=== PATIENT | male | born 1965 | race Caucasian/White ===

== ENCOUNTER 2021-01-13 14:21 | Emergency (ER) | payer OTHER ==
[~2021-01-13 14:21] MED LIST: ASPIRIN EC81 MG PO; ATORVASTATIN CA20 MG PO; BRILINTA 90 MG90 MG PO; FOLIC ACID 1 MG1 MG PO; LISINOPRIL40 MG PO; LOPRESSOR 25 MG25 MG PO; NITROGLYCERIN0.4 MG SL; VITAMIN B-1100 M1 PO
[2021-01-13 15:16] LABS: HEMOGLOBIN 14.1 gm/dl (14.0-17.5); RED BLOOD COUNT 4.46 M/UL (4.20-5.50); WHITE BLOOD COUNT 8.6 K/UL (4.5-11.0)
[2021-01-13 15:30] LABS: BUN/CREATININE RATIO 15 (0-10)
== END 2021-01-13 17:06 | disposition home or self-care (01) ==
LOC: ER1 14:21
PROVIDERS: Nurse Practitioner
DX: R04.0 Epistaxis (principal); E78.5 Hyperlipidemia, unspecified; I10 Essential (primary) hypertension; I25.10 Atherosclerotic heart disease of native coronary artery without angina pectoris; Z79.01 Long term (current) use of anticoagulants; Z95.5 Presence of coronary angioplasty implant and graft
CPT/HCPCS: 80053; 85025; 85610; 85730; 99283